=== PATIENT | female | born 1985 | race Caucasian/White ===

== ENCOUNTER 2017-12-16 22:09 | Emergency (ER) | payer MEDICAID ==
[2017-12-16] MEDS ORDERED: DiphenhydrAMINE 50 mg/ml Inj IM STA (23:40)
[2017-12-16] MEDS ORDERED: Sodium Chloride 0.9% 1,000 ML IV ONE (23:41)
[2017-12-16 23:43] LABS: HCG,QUALITATIVE URINE NEGATIVE (NEGATIVE)
[2017-12-16 23:44] LABS: SQUAMOUS EPITHIAL 1 /hpf (0-5); URINE BILIRUBIN NEGATIVE (NEGATIVE); URINE BLOOD 2+ (NEGATIVE); URINE CLARITY Clear (Clear); URINE COLOR Colorless (YELLOW); URINE GLUCOSE (UA) 3+ mg/dL (Normal); URINE LEUKOCYTE ESTERASE NEG Leu/uL (Negative); URINE PROTEIN NEGATIVE (NEGATIVE); URINE UROBILINOGEN NORMAL mg/dL (0.2-1.0)
--- NOTE | 2017-12-16 23:47 | C.PDOC ---
History Of Present Illness 32 year old female presents to the emergency department with complaints of a bad headache which started around 3PM today with a severity Time Seen by Provider: 12/16/17 23:25 Chief Complaint (Nursing): Headache Past Medical History Vital Signs: Last Vital Signs Temp 98.9 F 12/17/17 01:05 Pulse 69 12/17/17 01:05 Resp 18 12/17/17 01:05 BP 122/75 12/17/17 01:05 Pulse Ox 97 12/17/17 13:25 - Medical History PMH: HTN Family History: States: No Known Family Hx, Diabetes, Hypertension - Social History Hx Alcohol Use: No Hx Substance Use: No - Immunization History Hx Tetanus Toxoid Vaccination: No Hx Influenza Vaccination: No Hx Pneumococcal Vaccination: No Review Of Systems Constitutional: Negative for: Fever, Chills, Sweats Eyes: Negative for: Pain, Vision Change ENT: Negative for: Ear Pain, Ear Discharge, Nose Pain, Nose Discharge Cardiovascular: Negative for: Chest Pain, Palpitations, Orthopnea, Paroxysmal Noc. Dyspnea Respiratory: Negative for: Cough, Shortness of Breath, Hemoptysis Gastrointestinal: Negative for: Nausea, Vomiting, Abdominal Pain Genitourinary: Negative for: Dysuria, Frequency, Incontinence Musculoskeletal: Negative for: Neck Pain, Shoulder Pain, Arm Pain Skin: Negative for: Rash Neurological: Positive for: Headache. Negative for: Weakness, Numbness, Incoordination, Change in Speech, Confusion, Seizures, Altered Mental Status, Dizziness Psych: Negative for: Anxiety, Depression, Psychosis, Suicidal ideation Physical Exam - Physical Exam Appears: Non-toxic Skin: Normal Color, Warm Head: Atraumatic, Normacephalic Eye(s): bilateral: Normal Inspection Ear(s): Bilateral: Normal Nose: Normal Oral Mucosa: Moist Tongue: Normal Appearing Lips: Normal Appearing Gingiva: Normal Appearing Throat: Normal Neck: Normal Lymphatic: Normal Exam Gastrointestinal/Abdominal: Normal Exam Extremity: Normal ROM Neurological/Psych: Oriented x3 ED Course And Treatment - Laboratory Results Result Diagrams: 12/16/17 23:55 12/16/17 23:55 O2 Sat by Pulse Oximetry: 97 Medical Decision Making Medical Decision Making: pt improved with pain meds here. labs unremarkable. pt is ready for dc. Disposition Counseled Patient/Family Regarding: Diagnosis, Need For Followup - Disposition Referrals: [facility] [place] [facility] [Outside] [facility] [place] [Outside] Disposition: HOME/ ROUTINE Disposition Time: 00:45 Condition: GOOD Additional Instructions: return to ed if symptoms return Instructions: Tension Headache, Headache, Adult Forms: [facility] ([facility]) - Clinical Impression Clinical Impression: Headache, Headache
[2017-12-16 23:59] LABS: BASO # 0.1 K/uL (0.0-0.2); BASO % 0.7 % (0.0-2.0); EOS # 0.1 K/uL (0.0-0.7); EOS % 0.7 % (0.0-4.0); HEMOGLOBIN 12.3 g/dL (11.0-16.0); LYMPH # 2.7 K/uL (1.0-4.3); LYMPH % 32.5 % (20.0-40.0); MEAN CELL VOLUME 75.8 fL (81.0-99.0); MEAN PLATELET VOLUME 8.2 fL (7.2-11.7); MONO # 0.4 K/uL (0.0-0.8); MONO % 4.4 % (0.0-10.0); NEUT # 5.1 K/uL (1.8-7.0); NEUT % 61.7 % (50.0-75.0); RBC 4.93 Mil/uL (3.80-5.20); RED CELL DISTRIBUTION WIDTH 15.1 % (11.5-14.5); WHITE BLOOD COUNT 8.3 K/uL (4.8-10.8)
[2017-12-17] MEDS ORDERED: DiphenhydrAMINE 50 mg/ml Inj ONE (00:05)
[2017-12-17] MEDS ORDERED: Sodium Chloride 0.9% 1,000 ML ONE (00:05)
[2017-12-17 00:17] LABS: ALB/GLOB RATIO 0.9 (1.0-2.1); ALBUMIN 4.4 g/dL (3.5-5.0); ALT/SGPT 109 U/L (9-52); AST/SGOT 94 U/L (14-36); BLOOD UREA NITROGEN 11 mg/dL (7-17); CALCIUM 9.9 mg/dl (8.6-10.4); GFR AFRICAN-AMERICAN > 60; GFR NON-AFRICAN AMERICAN > 60
[2017-12-17 01:05] VITALS: BP 122/75; PULSE 69; RESP 18; TEMP 98.9
[2017-12-17 01:36] VITALS: O2SAT 97
== END 2017-12-17 01:15 | disposition home or self-care (01) ==
LOC: C.ER 22:09
DX: R51 Headache (principal)
CPT/HCPCS: 80053; 81001; 84703; 85025; 96361; 96372; 96374; 96375; 99284; J1200; J1885; J2765; J7040